=== PATIENT | female | born 1990 | race Hispanic/Latino ===

== ENCOUNTER 2019-01-13 16:38 | Emergency (ER) | payer MEDICAID, OTHER ==
[~2019-01-13 16:38] MED LIST: PREN-196 PO
[2019-01-13] MEDS ORDERED: SODIUM CHLORIDE 0.9% 1000ML 1,000 ML IV ONE (16:59)
[2019-01-13 17:04] LABS: BASOPHILS % (AUTO) 0.7 % (0.0-5.0); EOSINOPHILS % (AUTO) 0.7 % (0.0-8.0); HEMATOCRIT 37.8 % (36-48); LYMPHOCYTES % (AUTO) 17.4 % (21.0-51.0); MEAN CORPUSCULAR HEMOGLOBIN 27.1 pg (27.0-33.0); MEAN CORPUSCULAR HGB CONC 33.6 g/dL (32.0-36.0); MEAN CORPUSCULAR VOLUME 80.6 fL (79-99); MONOCYTES % (AUTO) 6.1 % (3.0-13.0); NEUTROPHILS % (AUTO) 75.1 % (40.0-77.0); PLATELET COUNT (AUTO) 257 K/uL (130-400); RED BLOOD CELL COUNT(AUTO) 4.68 MIL/uL (4.00-5.50); RED CELL DISTRIBUTION WIDTH 15.2 % (11.0-15.5); WHITE BLOOD COUNT (AUTO) 9.9 K/uL (4.8-10.8)
[2019-01-13] MEDS ORDERED: ONDANSETRON HCL 4 MG/2 ML VIAL ONE (17:11)
[2019-01-13 17:15] LABS: POTASSIUM 3.5 mmol/L (3.5-5.1)
[2019-01-13 17:20] LABS: ALBUMIN 3.9 g/dL (3.5-5.0); BILIRUBIN,TOTAL 0.9 mg/dL (0.2-1.0)
[2019-01-13 17:44] LABS: APPEARANCE,URINE CLOUDY (CLEAR); BILIRUBIN,URINE NEGATIVE (NEGATIVE); COLOR,URINE YELLOW (YELLOW); GLUCOSE, URINE (UA) NEGATIVE (NEGATIVE); KETONES,URINE NEGATIVE (NEGATIVE); LEUKOCYTE ESTERASE ,URINE SMALL (NEGATIVE); NITRATE,URINE NEGATIVE (NEGATIVE); OCCULT BLOOD,URINE LARGE (NEGATIVE); PH,URINE 6.5 (5.0-8.0); PROTEIN,URINE TRACE mg/dL (NEGATIVE); UROBILINOGEN,URINE 0.2 mg/dL (0.2-1.0)
[2019-01-13 17:46] LABS: HCG,QUAL RESULT NEGATIVE (NEGATIVE)
[2019-01-13] MEDS ORDERED: KETOROLAC TROMETHAMINE 15MG/ML ONE (17:50)
[2019-01-13 17:52] LABS: BACTERIA,URINE Few /HPF (None Seen); MUCUS,URINE Few LPF (None Seen)
== END 2019-01-13 18:44 | disposition home or self-care (01) ==
LOC: EDH 16:38
DX: N39.0 Urinary tract infection, site not specified (principal); N20.1 Calculus of ureter; R11.2 Nausea with vomiting, unspecified; Z90.49 Acquired absence of other specified parts of digestive tract
CPT/HCPCS: 36415; 76770; 80053; 81001; 81025; 85025; 96361; 96374; 96375; 99285; J1885; J2405; J7030

== ENCOUNTER 2020-12-28 01:02 | Emergency (ER) | payer MEDICAID ==
[~2020-12-28] VITALS: Ht 162.6 cm; Wt 93.0 kg
[2020-12-28 02:43] VITALS: BP 140/89
[2020-12-28] MEDS ORDERED: ORPHENADRINE CITRATE 30 MG/ML ML ONE (03:06)
[2020-12-28] MEDS ORDERED: KETOROLAC 30MG VIAL (30MG/ML) ONE (03:07)
[2020-12-28] MEDS ORDERED: 0.9%NACL 1000ML 1,000 ML IV ONE ×2 (03:07→03:30)
[2020-12-28] MEDS ORDERED: ORPHENADRINE CITRATE 30 MG/ML ML IV ONE (03:30)
[2020-12-28] MEDS ORDERED: KETOROLAC 30MG VIAL (30MG/ML) IV ONE (03:30)
[2020-12-28] MEDS ORDERED: NAPR500T6 PO (06:25)
[2020-12-28] MEDS ORDERED: METH-662 PO (06:25)
[2020-12-28 06:34] VITALS: BP 135/82
== END 2020-12-28 06:52 | disposition home or self-care (01) ==
LOC: EDH 01:02
DX: S39.012A Strain of muscle, fascia and tendon of lower back, initial encounter (principal); E11.9 Type 2 diabetes mellitus without complications; I10 Essential (primary) hypertension; E66.9 Obesity, unspecified; X58.XXXA Exposure to other specified factors, initial encounter; Z79.1 Long term (current) use of non-steroidal anti-inflammatories (NSAID); Y93.89 Activity, other specified; Y92.89 Other specified places as the place of occurrence of the external cause; Y99.8 Other external cause status
CPT/HCPCS: 72131; 81025; 99284; J7030; J1885

== ENCOUNTER 2024-01-06 18:08 | Emergency (ER) | payer MEDICAID ==
[~2024-01-06] VITALS: Ht 162.6 cm; Wt 88.5 kg
[~2024-01-06 18:08] MED LIST changes: +METH-662 PO; +NAPR500T6 PO
[2024-01-06 20:07] LABS: APPEARANCE,URINE CLEAR (CLEAR); BILIRUBIN,URINE NEGATIVE (NEGATIVE); COLOR,URINE YELLOW (YELLOW); GLUCOSE, URINE (UA) NEGATIVE (NEGATIVE); KETONES,URINE NEGATIVE (NEGATIVE); LEUKOCYTE ESTERASE ,URINE 250 Leu/uL (NEGATIVE); NITRATE,URINE NEGATIVE (NEGATIVE); OCCULT BLOOD,URINE MODERATE (NEGATIVE); PH,URINE 5.5 (5.0-8.0); PROTEIN,URINE 10 mg/dL (NEGATIVE); UROBILINOGEN,URINE 0.2 mg/dL (0.2-1.0)
[2024-01-06 20:08] LABS: HCG,QUALITATIVE URINE NEGATIVE (NEGATIVE)
[2024-01-06 20:09] LABS: ADD UA MICROSCOPIC YES
[2024-01-06 20:23] LABS: BACTERIA,URINE RARE /HPF (None Seen); MUCUS,URINE RARE LPF (None Seen); SQUAMOUS EPITHELIAL CELL,UR FEW /HPF (0-2)
[2024-01-06 20:39] LABS: BASOPHILS # (AUTO) 0.07 K/uL (0.00-0.20); BASOPHILS % (AUTO) 0.6 % (0.0-5.0); EOSINOPHILS % (AUTO) 1.8 % (0.0-8.0); HEMATOCRIT 26.3 % (36-48); IMMATURE GRANULOCYTE ABSOLUTE 0.07 K/uL (0-1); LYMPHOCYTES # (AUTO) 2.3 K/uL (1.0-4.8); MEAN CORPUSCULAR HEMOGLOBIN 16.4 pg (27.0-33.0); MEAN CORPUSCULAR HGB CONC 26.6 g/dL (32.0-36.0); MEAN CORPUSCULAR VOLUME 61.4 fL (79-99); MONOCYTES # (AUTO) 0.8 K/uL (0.1-1.0); MONOCYTES % (AUTO) 7.3 % (3.0-13.0); NEUTROPHILS # (AUTO) 7.6 K/uL (1.8-7.7); NEUTROPHILS % (AUTO) 68.7 % (40.0-77.0); PLATELET COUNT (AUTO) 270 K/uL (130-400); RED BLOOD CELL COUNT(AUTO) 4.28 MIL/uL (4.00-5.50); RED CELL DISTRIBUTION WIDTH 19.5 % (11.0-15.5)
[2024-01-06 20:48] LABS: CREATININE 0.7 mg/dL (0.5-1.0); POTASSIUM 3.5 mmol/L (3.5-5.1)
[2024-01-06 20:52] LABS: ALBUMIN 3.4 g/dL (3.5-5.0); BILIRUBIN,TOTAL 0.7 mg/dL (0.2-1.0); TOTAL PROTEIN, SERUM 7.3 g/dL (6.0-8.3)
[2024-01-06] MEDS ORDERED: CEPH500T PO (21:55)
[2024-01-06] MEDS: cefTRIAXone 1G VIAL IVPB ONE (23:51)
[2024-01-07] MEDS: morPHINE 2 MG SYG IVP ONE (02:41)
[2024-01-07] MEDS: ketOROlac 15MG/ML VIAL (15MG/ML) IV ONE (02:41)
[2024-01-07] MEDS: ondanSETRON 4MG INJ IVP ONE (02:42)
[2024-01-07 03:17] VITALS: BP 150/83; PULSE 79; RESP 16; TEMP 98.4; O2SAT 99
== END 2024-01-07 03:29 | disposition home or self-care (01) ==
LOC: EDH 18:08
DX: N39.0 Urinary tract infection, site not specified (principal); D64.9 Anemia, unspecified; N20.0 Calculus of kidney; E11.9 Type 2 diabetes mellitus without complications; I10 Essential (primary) hypertension; E66.9 Obesity, unspecified; Z68.30 Body mass index [BMI] 30.0-30.9, adult
CPT/HCPCS: 99285; 36430; 74176; 96374; 80053; 83690; 85025; 86850; 86900; 86901; 86923; 87086 ×2; 87186; 81001; 81025; 36415; 96375; P9016; J0696; J2270; J2405; J1885; 99291